=== PATIENT | female | born 1995 | race Caucasian/White ===

== ENCOUNTER 2018-04-15 10:25 | Emergency (ER) | payer OTHER ==
[~2018-04-15] VITALS: Ht 149.9 cm; Wt 56.7 kg
[~2018-04-15 10:25] MED LIST: CODACE30 PO; Cleocin HCl300 MG PO; IBUP600 PO; Naprosyn500 MG PO; Norco 5-325 Ta1 EACH PO; Percocet 5-3251 EACH PO; Peridex480 ML SS; Veetids 500500 MG PO
== END 2018-04-15 11:15 | disposition home or self-care (01) ==
LOC: ER 10:25
DX: M75.21 Bicipital tendinitis, right shoulder (principal)
CPT/HCPCS: 99282

== ENCOUNTER → 2023-04-28 | Outpatient (CLI) | payer OTHER ==
[2023-04-28 14:35] LABS: BASOPHILS ABSOLUTE AUTO 0.02 K/mm3 (0.00-0.23); BASOPHILS PERCENT AUTO 0 % (0-2); EOSINOPHILS ABSOLUTE AUTO 0.13 K/mm3 (0.00-0.68); EOSINOPHILS PERCENT AUTO 2 % (0-6); Hematocrit 40.3 % (33.0-51.0); Hemoglobin 13.7 g/dL (11.5-16.0); IMMATURE GRAN ABSOLUTE AUTO 0.02 K/mm3 (0.00-0.10); IMMATURE GRAN PERCENT AUTO 0 % (0-1); LYMPHOCYTES ABSOLUTE AUTO 2.11 K/mm3 (0.84-5.20); LYMPHOCYTES PERCENT AUTO 27 % (21-46); MONOCYTES ABSOLUTE AUTO 0.49 K/mm3 (0.16-1.47); MONOCYTES PERCENT AUTO 6 % (4-13); Mean Corpuscular Volume 85 fL (80-100); Mean Platelet Volume 11.6 fL (9.1-12.4); NEUTROPHILS ABSOLUTE AUTO 4.93 K/mm3 (1.96-9.15); NEUTROPHILS PERCENT AUTO 64 % (41-73); Platelet Count 263 K/mm3 (150-400); RDW Standard Deviation 40.3 fL (35.1-46.3); Red Blood Cell Count 4.73 M/mm3 (3.80-5.20)
[2023-04-28 16:01] LABS: Albumin/Globulin Ratio 1.1 (0.8-1.8); Bilirubin, Total 0.3 mg/dL (0.1-1.0); Bun/Creatinine Ratio 15.5 (12.0-20.0); Calcium, Blood 9.3 mg/dL (8.5-10.1); Creatinine, Blood 0.65 mg/dL (0.40-1.00); Globulin, Blood 3.7 g/dL (2.2-4.0); Potassium, Blood 3.9 mmol/L (3.5-5.5); Thyroid Stimulating Hormone 2.09 uIU/mL (0.360-4.800); Total Protein, Blood 7.7 g/dL (6.4-8.2)
[2023-04-29 08:40] LABS: Candida species (DNA Probe) Negative (NEGATIVE); G. vaginalis (DNA Probe) Positive (NEGATIVE); T. vaginalis (DNA Probe) Negative (NEGATIVE)
[2023-04-30 22:11] LABS: CHLAMYDIA BY NAA Negative (Negative); GONOCOCCUS BY NAA Negative (Negative); TRICH VAG BY NAA Negative (Negative)
== END | disposition home or self-care (01) ==
LOC: LAB SHORT 12:51 → LAB 12:51
PROVIDERS: Family Medicine
DX: R10.10 Upper abdominal pain, unspecified (principal); N92.6 Irregular menstruation, unspecified
CPT/HCPCS: 80053; 84443; 84702; 85025; 87480; 87491; 87510; 87591; 87660; 87661

== ENCOUNTER 2023-05-28 18:53 | Emergency (ER) | payer OTHER ==
[~2023-05-28] VITALS: Ht 149.9 cm; Wt 63.5 kg
[2023-05-28 19:17] VITALS: BP 145/87
== END 2023-05-28 20:26 | disposition home or self-care (01) ==
LOC: ER 18:53
DX: O99.891 Other specified diseases and conditions complicating pregnancy (principal); R10.9 Unspecified abdominal pain; Z3A.08 8 weeks gestation of pregnancy
CPT/HCPCS: 76801; 99284-25

== ENCOUNTER → 2023-06-23 | Outpatient (CLI) | payer OTHER ==
[2023-06-24 13:18] LABS: BASOPHILS ABSOLUTE AUTO 0.03 K/mm3 (0.00-0.23); BASOPHILS PERCENT AUTO 0 % (0-2); EOSINOPHILS ABSOLUTE AUTO 0.08 K/mm3 (0.00-0.68); EOSINOPHILS PERCENT AUTO 1 % (0-6); Hemoglobin 13.5 g/dL (11.5-16.0); IMMATURE GRAN ABSOLUTE AUTO 0.03 K/mm3 (0.00-0.10); IMMATURE GRAN PERCENT AUTO 0 % (0-1); LYMPHOCYTES ABSOLUTE AUTO 2.48 K/mm3 (0.84-5.20); LYMPHOCYTES PERCENT AUTO 23 % (21-46); MONOCYTES ABSOLUTE AUTO 0.64 K/mm3 (0.16-1.47); MONOCYTES PERCENT AUTO 6 % (4-13); Mean Corpuscular HGB 29.2 pg (26.0-34.0); Mean Corpuscular HGB Conc 32.1 g/dL (31.5-36.5); Mean Corpuscular Volume 91 fL (80-100); Mean Platelet Volume 11.4 fL (9.1-12.4); NEUTROPHILS ABSOLUTE AUTO 7.61 K/mm3 (1.96-9.15); NEUTROPHILS PERCENT AUTO 70 % (41-73); Platelet Count 281 K/mm3 (150-400); RDW Coefficient Variation 13.4 % (11.7-14.2); RDW Standard Deviation 44.2 fL (35.1-46.3); Red Blood Cell Count 4.63 M/mm3 (3.80-5.20); White Blood Cell Count 10.87 K/mm3 (4.00-11.30)
[2023-06-26 01:08] LABS: HBSAG SCREEN Negative (Negative); HIV AB/P24 AG SCREEN Non Reactive (Non Reactive)
== END | disposition home or self-care (01) ==
LOC: LAB 17:25 → LAB SHORT 17:25
PROVIDERS: Registered Nurse Community Health
DX: Z34.91 Encounter for supervision of normal pregnancy, unspecified, first trimester (principal)
CPT/HCPCS: 80055; 84443; 86803; 87086; 87389

== ENCOUNTER → 2023-07-07 | Outpatient (CLI) | payer OTHER ==
[2023-07-09 03:10] LABS: CHLAMYDIA TRACHOMATIS, NAA Negative (Negative)
== END ==
LOC: LAB SHORT 15:10 → LAB 15:10
PROVIDERS: Registered Nurse Community Health
DX: Z34.92 Encounter for supervision of normal pregnancy, unspecified, second trimester (principal); Z3A.00 Weeks of gestation of pregnancy not specified
CPT/HCPCS: 87491; 87591

== ENCOUNTER 2023-12-21 09:54 | Inpatient (IN) | payer OTHER ==
[2023-12-21] VITALS (19 sets, daily range): BP systolic 107–158; BP diastolic 58–94
[~2023-12-21] VITALS: Ht 149.9 cm; Wt 82.7 kg
[2023-12-21] MEDS ORDERED: Ampicillin Sod 2,000 MG in NS 100 ML IV STA (10:34)
[2023-12-21] MEDS ORDERED: Misoprostol 200 MCG Tab PR SCH (10:35)
[2023-12-21] MEDS ORDERED: Lidocaine HCl 1% 30 ML SDV XX SCH (10:35)
[2023-12-21] MEDS ORDERED: Oxytocin 10 Unit / ML Vial IM SCH (10:35)
[2023-12-21] MEDS ORDERED: Bupivacaine HCl 2.5 MG/ML 10ML P/F Injection XX SCH (10:35)
[2023-12-21] MEDS ORDERED: Methylergonovine Maleate 0.2MG / ML 1ML Amp IM SCH (10:35)
[2023-12-21] MEDS ORDERED: Lactated Ringer's 1,000 ML IV PRN (10:35)
[2023-12-21] MEDS ORDERED: LR Oxytocin 20 Units 1,000 ML IV SCH ×3 (10:35→12:40)
[2023-12-21] MEDS ORDERED: Bupivacaine 0.5% HCl 5 MG/ML 30MLVIAL XX SCH (10:35)
[2023-12-21] MEDS ORDERED: Castor Oil 59.146 ML BTL TOP SCH (10:35)
[2023-12-21] MEDS ORDERED: ePHEDrine Sulfate 50 MG/ML 1ML Injection XX PRN (10:40)
[2023-12-21] MEDS ORDERED: Lactated Ringer's 1,000 ML IV SCH ×3 (10:40→12:40)
[2023-12-21] MEDS ORDERED: FentaNYL Citrate 50 MCG/ML 2 ML Injection IV PRN (10:40)
[2023-12-21] MEDS ORDERED: FentaNYL 2mcg/ml-Bup 0.1% Epd 250 ML EPI PRN (10:40)
[2023-12-21] MEDS ORDERED: Misoprostol 25 MCG Tab VAG PRN (11:00)
[2023-12-21 11:15] LABS: BASOPHILS ABSOLUTE AUTO 0.02 K/mm3 (0.00-0.23); BASOPHILS PERCENT AUTO 0 % (0-2); EOSINOPHILS ABSOLUTE AUTO 0.03 K/mm3 (0.00-0.68); EOSINOPHILS PERCENT AUTO 0 % (0-6); IMMATURE GRAN ABSOLUTE AUTO 0.08 K/mm3 (0.00-0.10); IMMATURE GRAN PERCENT AUTO 1 % (0-1); LYMPHOCYTES ABSOLUTE AUTO 1.74 K/mm3 (0.84-5.20); LYMPHOCYTES PERCENT AUTO 15 % (21-46); MONOCYTES ABSOLUTE AUTO 0.66 K/mm3 (0.16-1.47); MONOCYTES PERCENT AUTO 6 % (4-13); Mean Corpuscular HGB 25.4 pg (26.0-34.0); Mean Corpuscular HGB Conc 31.4 g/dL (31.5-36.5); Mean Corpuscular Volume 81 fL (80-100); Mean Platelet Volume 12.5 fL (9.1-12.4); NEUTROPHILS ABSOLUTE AUTO 9.01 K/mm3 (1.96-9.15); NEUTROPHILS PERCENT AUTO 78 % (41-73); Platelet Count 255 K/mm3 (150-400); RDW Coefficient Variation 15.1 % (11.7-14.2); RDW Standard Deviation 42.7 fL (35.1-46.3); Red Blood Cell Count 4.33 M/mm3 (3.80-5.20); White Blood Cell Count 11.54 K/mm3 (4.00-11.30)
[2023-12-21] MEDS ORDERED: ESCI10 PO (11:46)
[2023-12-21] MEDS ORDERED: Ampicillin Sod 1,000 MG in NS 100 ML IV SCH (15:00)
[2023-12-22] VITALS (19 sets, daily range): BP systolic 126–154; BP diastolic 60–94
[2023-12-22] MEDS ORDERED: Ketorolac Tromethamine 30mg Vial IV PRN (02:00)
[2023-12-22] MEDS ORDERED: Witch Hazel/Glycerin PADS TOP PRN (02:00)
[2023-12-22] MEDS ORDERED: Ibuprofen 400 MG Tab PO PRN (02:00)
[2023-12-22] MEDS ORDERED: Benzocaine Topical Anesthetic Spray 60GM TOP PRN (02:00)
[2023-12-22] MEDS ORDERED: LR Oxytocin 20 Units 1,000 ML IV SCH (02:00)
[2023-12-22] MEDS ORDERED: Ketorolac Tromethamine 30mg Vial IV ONE (02:00)
[2023-12-22] MEDS ORDERED: Methylergonovine Maleate 0.2MG / ML 1ML Amp IM PRN (02:05)
[2023-12-22] MEDS ORDERED: OxyCODONE 5 mg/Acetamin 325 mg TABLET PO PRN (02:05)
[2023-12-22] MEDS ORDERED: Acetaminophen 325 MG TABLET PO PRN (02:05)
[2023-12-22] MEDS ORDERED: Diphth,Pertuss(Acell),Tet Vac 0.5 ML VIAL IM ONE ×2 (02:05→22:25)
[2023-12-22] MEDS ORDERED: Lactated Ringer's 1,000 ML IV SCH (02:05)
[2023-12-22] MEDS ORDERED: Misoprostol 200 MCG Tab PO PRN (02:05)
[2023-12-22] MEDS ORDERED: Docusate Sodium 100 MG Cap PO PRN (02:05)
--- NOTE | 2023-12-22 05:30 | NUR ---
LATE ENTRY: Carno DAWSON CNM UPDATED WITH DELAYED PPH OF 999ML. RESOLVED WITH FUNDAL MASSAGE, VSS.
--- NOTE | 2023-12-22 05:33 | NUR ---
RN called to room to give pain medicine for cramping. Pt nauseus and vomiting upon arrival to room. Pt stated that marichuy pad needed to be changed. RN noticed large amount of blood and clots. Fundus firm at umbilicus with scaqnt flow. RN called Aida GOETZ to room. EBL 999. K. Vicenta called by Aida GOETZ.
[2023-12-22] MEDS ORDERED: Prenatal Vit/FE Fumarate/FA 1 Tab PO SCH (09:00)
[2023-12-22 13:51] LABS: Hematocrit 23.8 % (33.0-51.0); Hemoglobin 7.7 g/dL (11.5-16.0); Mean Corpuscular HGB 25.9 pg (26.0-34.0); Mean Corpuscular HGB Conc 32.4 g/dL (31.5-36.5); Mean Corpuscular Volume 80 fL (80-100); Platelet Count 249 K/mm3 (150-400); RDW Coefficient Variation 15.7 % (11.7-14.2); RDW Standard Deviation 43.6 fL (35.1-46.3); Red Blood Cell Count 2.97 M/mm3 (3.80-5.20)
[2023-12-22] MEDS ORDERED: Sod Ferric Gluc Complx/Sucrose 125 MG in NS 100 ML IV ONE (18:50)
[2023-12-23 00:26] VITALS: BP 121/71
[2023-12-23 03:22] VITALS: BP 118/74
[2023-12-23 06:18] LABS: Hematocrit 23.5 % (33.0-51.0); Hemoglobin 7.2 g/dL (11.5-16.0); Mean Corpuscular HGB 25.7 pg (26.0-34.0); Mean Corpuscular HGB Conc 30.6 g/dL (31.5-36.5); Mean Corpuscular Volume 84 fL (80-100); Mean Platelet Volume 11.6 fL (9.1-12.4); Platelet Count 212 K/mm3 (150-400); RDW Coefficient Variation 16.1 % (11.7-14.2); RDW Standard Deviation 46.1 fL (35.1-46.3); White Blood Cell Count 12.25 K/mm3 (4.00-11.30)
[2023-12-23 07:27] VITALS: BP 126/87
[2023-12-23] MEDS ORDERED: FLU VACC QS2023-24(6MOS UP)/PF 60 MCG/0.5 ML SYRINGE IM ONE (08:55)
[2023-12-23] MEDS ORDERED: IBUP200 PO (10:42)
[2023-12-23] MEDS ORDERED: Acetaminophen325 M1 PO (10:42)
[2023-12-23] MEDS ORDERED: Milk Of Ma400 MG/5 M PO (10:43)
[2023-12-23] MEDS ORDERED: DOCU100 PO (10:43)
[2023-12-23 11:24] VITALS: BP 141/93
--- NOTE | 2023-12-23 11:43 | NUR ---
DISCHARGE TEACHING COMPLETED QUESTIONS ANSWERED, ADDITIONAL PATERNITY INFORMATION GIVEN FOR STATE REQUIREMENTS.
--- NOTE | 2023-12-23 14:35 | NUR ---
DISCHARGE TO HOME WITH SUE PT DECLINED DONOR BREASTMILK TO BE SENT HOME THYE WILL F/U IN CLINIC TOMORROW WITH EVAN ROGERS LATCHED FOR 5 MN PRIOR TO D/C
--- NOTE | 2023-12-24 10:43 | NUR ---
UPDATED PER EMR
== END 2023-12-23 14:20 | disposition home or self-care (01) | DRG 806 ==
LOC: OBS 09:54 → BC 09:56 → OBS 10:01 → BC 10:04
PROVIDERS: ADMIT Advanced Practice Midwife
PROC: 10E0XZZ Delivery of Products of Conception, External Approach (ICD-10-PCS; principal; 2023-12-22)
PROC: 3E0R3BZ Introduction of Anesthetic Agent into Spinal Canal, Percutaneous Approach (ICD-10-PCS; 2023-12-22)
PROC: 00HU33Z Insertion of Infusion Device into Spinal Canal, Percutaneous Approach (ICD-10-PCS; 2023-12-22)
DX: O42.02 Full-term premature rupture of membranes, onset of labor within 24 hours of rupture (principal); O72.1 Other immediate postpartum hemorrhage; Z37.0 Single live birth; O99.344 Other mental disorders complicating childbirth; F32.A Depression, unspecified; O90.81 Anemia of the puerperium; Z3A.38 38 weeks gestation of pregnancy; Z03.71 Encounter for suspected problem with amniotic cavity and membrane ruled out
CPT/HCPCS: 36415; 51702; 59025; 76815; 85025; 85027; 86850; 86900; 86901; 87210; 90715; 99214; A9270; J0290; J1885; J2590; J2916; J3010; J7120